=== PATIENT | female | born 1975 | race Caucasian/White ===

== ENCOUNTER 2024-07-02 09:27 | Emergency (ER) | payer OTHER, SELFPAY ==
[2024-07-02] VITALS (7 sets, daily range): BP systolic 106–121; BP diastolic 70–85; PULSE 88–112; RESP 13–17; TEMP 36.4–36.8; O2SAT 98–100; BMI 34.9
--- NOTE | 2024-07-02 09:55 | ECG_ITS ---
Test Reason : ARRHYTHMIA Blood Pressure : / mmHG Vent. Rate : 104 BPM Atrial Rate : 104 BPM P-R Int : 146 ms QRS Dur : 076 ms QT Int : 340 ms P-R-T Axes : 048 043 032 degrees QTc Int : 447 ms Sinus tachycardia Otherwise normal ECG No previous ECGs available Referred By: Enoc Harris Electronically Signed By:Neftali Vuong
--- NOTE | 2024-07-02 09:55 | ED.ARRPALP ---
HPI - Arrhythmia/Palpitations General Chief Complaint: Arrhythmia/Palpitations Stated Complaint: palpitations/svt/adenosine 6mg given Time Seen by Provider: 07/02/24 09:39 Source: patient Mode of arrival: EMS Limitations: no limitations History of Present Illness HPI narrative: This is a 49 years old female presented to the emergency department via ambulance complaining of palpitation she was found to be in SVT by the EMS she was given a 6 mg of adenosine with methodist of the sinus rhythm. Patient had a similar episode about 4 years ago. MD complaint: rapid heart beat and heart racing Onset (ago): hour(s) (2) Time: 09:56 Duration: now resolved Severity: severe Context: occurred during rest Arrhythmia history: SVT Associated symptoms: denies other symptoms Related Data Previous Rx's ?Medication ?Instructions ?Recorded metoprolol succinate 25 mg 25 mg PO DAILY #30 tabs 07/02/24 tablet,extended release 24 hr (Toprol XL) Allergies Allergy/AdvReac Type Severity Reaction Status Date / Time No Known Allergies Allergy Verified 07/02/24 09:53 Review of Systems Constitutional: Constitutional: Reports no additional constitutional complaints ENT: Reports system reviewed and no additional complaints, except as documented Musculoskeletal: Musculoskeletal: Reports no additional musculoskeletal complaints [facility] Past Medical History Attestation statement: The following information was validated with the patient. [facility] Narrative: An episode of SVT 4 years ago Social History Social History Smoked in Last 30 Days: No Use of substances other than those prescribed or required for medical reasons: No Advance Directives: No Advance Directives Information Provided: Yes Physical Exam Vital Signs: Vital Signs: Last Vital Signs Temp 98.2 F 07/02/24 12:41 Pulse 88 07/02/24 12:41 Resp 17 07/02/24 12:41 BP 121/85 07/02/24 12:41 Pulse Ox 98 07/02/24 12:41 O2 Del Method Room Air 07/02/24 12:41 BMI result Body Mass Index 34.9 She looks well she is not toxic-appearing Const: General: cooperative, comfortable and no acute distress Orientation/consciousness: patient oriented x3 HEENT: Head: Yes normal to inspection Face and sinus: Yes normal facial exam Mouth: Normal oral and palatal mucosa present Throat: Yes posterior oropharynx normal Neck: Neck: Yes normal visual inspection Chest: Chest palpation & inspection: normal inspection of the chest Resp: Effort & Inspection: normal respiratory effort Auscultation: clear to auscultation bilaterally Cardio: Jugular venous distension: no JVD Rate: regular rate Rhythm: regular rhythm GI: Inspection: Yes normal to inspection Palpation (GI): Soft to palpation Percussion: Yes normal to percussion : General: Yes no CVA tenderness Back/Spine/Pelvis: Back: no CVA tenderness Skin: General skin exam: no rashes or lesions noted and elasticity normal Neuro: General: patient oriented x3 Cranial nerves: Yes CN's II-XII intact bilaterally Course Reevaluation(s) Reevaluation #1: Prehospital rythm strip Reevaluation #2: At this time the patient is completely asymptomatic she has no chest pain no shortness of breath, troponin and was noted by me, I reviewed the pre-hospital EKG the electrocardiogram and the troponin with the perpetual inventory clerk on duty Dr. Vuong, troponin leak is likely due to the SVT, okay to discharge home on beta allison. The patient is very comfortable with this, she was given the number of the cardiology for follow-up Time: 13:26 Medications Administered Discontinued Medications Generic Name Dose Route Start Last Admin Trade Name Freq PRN Reason Stop Dose Admin Metoprolol Succinate 25 mg 07/02/24 09:54 07/02/24 10:21 Metoprolol Succinate Er 25 Mg Tab.Er.24h PO 07/02/24 09:55 25 mg ONCE ONE Administration Protocol Medical Decision Making Medical Decision Making [facility] Narrative: Patient presented to the emergency room department after an episode of SVT in sinus rhythm we will do EKG labs Differential Diagnosis Differential Diagnoses: The differential diagnosis associated with the presentation includes SVT /AFib Admission/Observation Consideration of admission/observation: Escalation of care including admission/observation considered Consult Healthcare Provider Management of the patient was discussed with: Manager Retail Sales Dr Vuong perpetual inventory clerk Lab Data [facility] Lab Attestation statement: I reviewed the patient's lab results. 07/02/24 10:13 07/02/24 10:13 Labs: Lab Results 07/02/24 07/02/24 Range/Units 10:13 12:36 WBC 13.9 H (4.8-10.8) X10*3/uL RBC 4.41 (4.20-5.50) X10*6/uL Hgb 14.7 (12.0-16.0) g/dl Hct 41.5 (37.0-47.0) % MCV 94.1 (80.0-98.0) fL MCH 33.3 H (27.0-33.0) pg MCHC 35.4 H (31.0-35.0) g/dl RDW 11.6 (11.0-16.0) % Plt Count 235 (160-400) X10*3/uL MPV 10.2 (9.4-12.3) fL Immature Gran % (Auto) 0.4 (0.0-0.4) % Neut % (Auto) 83.5 H (45-73) % Lymph % (Auto) 10.3 L (20-40) % Drew % (Auto) 4.9 (2-11) % Eos % (Auto) 0.6 (0-4) % Baso % (Auto) 0.3 (0-2) % Lymph # (Auto) 1.4 (1.2-4.9) X10*3/uL Drew # (Auto) 0.7 (0.1-1.2) X10*3/uL Eos # (Auto) 0.1 (0.0-0.4) X10*3/uL Baso # (Auto) 0.0 (0.0-0.2) X10*3/uL Abs Immat Gran (auto) 0.05 H (0.00-0.03) X10*3/uL Absolute Neuts (auto) 11.6 H (2.0-8.3) x10*3/uL Absolute Nucleated RBC 0.000 (0.0-0.012) X10*3/uL Nucleated RBC % (auto) 0.0 (0.0-0.2) /100WBC Sodium 142 (135-145) mmol/L Potassium 3.4 (3.3-5.1) mmol/L Chloride 110 H (96-108) mmol/L Carbon Dioxide 21 L (22-29) mmol/L Anion Gap 14 (12-20) BUN 9 (9-16) mg/dL Creatinine 0.74 (0.5-1.4) mg/dL Estim Creat Clear Calc 94.9 Estimated GFR > 60 Random Glucose 65 (60-115) mg/dL Calcium 8.7 (8.4-10.2) mg/dL Total Bilirubin 0.6 (0.0-1.0) mg/dL AST 19 (5-31) U/L ALT 13 (0-31) U/L Alkaline Phosphatase 76 (39-117) U/L Troponin I High Sens 44.1 H 117.6 H* D (<3.5-17.0) ng/L Total Protein 7.3 (6.5-8.0) g/dL Albumin 4.3 (3.5-5.0) g/dL Independent Interpretation I performed an independent interpretation of an: EKG Interpretation: EKG reviewed interpreted by me now in a normal sinus rhythm rate [address]-T changes Independent Historian Clinical information obtained from an independent historian. History obtained from or confirmed by: EMS Prescription Management I considered prescription management with: Other (B allison) Critical Care Time Critical Care Time Critical Care Time: Yes Total Critical Care Time: 60 Attestation: SVT speaking to EMS ,reviewing prehospital tracing taking care of the pt Discharge Plan Discharge Clinical Impression: SVT (supraventricular tachycardia) Patient Disposition: Still a Patient Instructions: Supraventricular Tachycardia (ED) Additional Instructions: Follow-up with perpetual inventory clerk return to emergency room if you are worse, we sent a prescription for you for Toprol XL (beta allison) Prescriptions: New metoprolol succinate [Toprol XL] 25 mg tablet extended release 24 hr 25 mg PO DAILY Qty: 30 0RF Referrals: Neftali Vuong MD [Physician] - 3 days Print Language: Hong Konger
[2024-07-02] MEDS: Metoprolol Succinate ER 25 MG TAB.ER.24H PO (10:21)
[2024-07-02 10:23] LABS: MANUAL DIFF FLAG NO
[2024-07-02 10:32] LABS: Basophils Percent Auto 0.3 % (0-2); Eosinophils Absolute Auto 0.1 X10*3/uL (0.0-0.4); Eosinophils Percent Auto 0.6 % (0-4); Hematocrit 41.5 % (37.0-47.0); Hemoglobin 14.7 g/dl (12.0-16.0); Imm Gran Abs Auto 0.05 X10*3/uL (0.00-0.03); Imm Gran Pct Auto 0.4 % (0.0-0.4); Lymphocytes Absolute Auto 1.4 X10*3/uL (1.2-4.9); Lymphocytes Percent Auto 10.3 % (20-40); Mean Corpuscular HGB Conc 35.4 g/dl (31.0-35.0); Mean Corpuscular Hemoglobin 33.3 pg (27.0-33.0); Mean Corpuscular Volume 94.1 fL (80.0-98.0); Mean Platelet Volume 10.2 fL (9.4-12.3); Monocytes Absolute Auto 0.7 X10*3/uL (0.1-1.2); Monocytes Percent Auto 4.9 % (2-11); Neutrophils Absolute Auto 11.6 x10*3/uL (2.0-8.3); Neutrophils Percent Auto 83.5 % (45-73); Platelet Count 235 X10*3/uL (160-400); Red Blood Count 4.41 X10*6/uL (4.20-5.50); Red Cell Distribution Width 11.6 % (11.0-16.0); White Blood Count 13.9 X10*3/uL (4.8-10.8)
[2024-07-02 10:45] LABS: Alanine Aminotransferase 13 U/L (0-31); Albumin Level 4.3 g/dL (3.5-5.0); Alkaline Phosphatase 76 U/L (39-117); Anion Gap 14 (12-20); Aspartate Amino Transferase 19 U/L (5-31); Bilirubin Total 0.6 mg/dL (0.0-1.0); Blood Urea Nitrogen 9 mg/dL (9-16); Calcium 8.7 mg/dL (8.4-10.2); Carbon Dioxide 21 mmol/L (22-29); Chloride 110 mmol/L (96-108); Creatinine Clr Calc Pharmacy 94.9; Estimated Glomerular Filt Rate > 60; Glucose Random 65 mg/dL (60-115); Potassium 3.4 mmol/L (3.3-5.1); Sodium 142 mmol/L (135-145); Total Protein 7.3 g/dL (6.5-8.0)
[2024-07-02 10:49] LABS: Troponin-I High Sensitivity 44.1 ng/L (<3.5-17.0)
[2024-07-02 13:12] LABS: Troponin-I High Sensitivity 117.6 ng/L (<3.5-17.0)
== END 2024-07-02 13:33 | disposition still patient (30) ==
PROVIDERS: Emergency Provider Emergency Medicine
DX: I47.10 Supraventricular tachycardia, unspecified (principal); I49.9 Cardiac arrhythmia, unspecified; R00.2 Palpitations
CPT/HCPCS: 36415; 80053; 84484; 85025; 93005; 99283; 99285

== ENCOUNTER → 2024-07-02 09:55 | Outpatient (BNV) | payer OTHER, SELFPAY | PROVIDERS: Emergency Provider Emergency Medicine; Visit Provider Internal Medicine Cardiovascular Disease | DX: R00.0 Tachycardia, unspecified (principal) | CPT/HCPCS: 93010 ==

== ENCOUNTER 2025-02-12 10:09 | Outpatient (AMB) | payer OTHER, SELFPAY ==
--- NOTE | 2025-02-12 10:44 | A.OFFVIS_ITS ---
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 In June 2024 while at work she developed anxiety and palpitations. She said she eventually called EMS who found her to be in supraventricular tachycardia and gave her adenosine. She apparently reverted to sinus rhythm after that. There is a rhythm strip scanned in the ER physician's note showing supraventricular tachycardia. She is saying that 3 years ago she had a similar episode where she became very pale suddenly but this episode was self-limiting. She has not had any further episodes. Denying any chest discomfort shortness of breath in her day-to-day life. She was advised to take metoprolol but she has not been using that and is currently on [employer] appetite for weight loss. Drinks 1 large cup of coffee. Does not drink any soda or stimulants. Social drinker. No drug abuse. 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 [facility] Social History (Updated 02/12/25 @ 10:47 by Marj Hu, [facility]) Alcohol intake: current Alcohol intake frequency: holidays/special occasions only Patient Tobacco Use Status: Never used Tobacco Review of Systems Const Denies chills, Denies fatigue, Denies fever(s), Denies frequent falls, Denies weakness, Denies weight gain and Denies weight loss ENT Denies dizziness Card Denies chest pain, Denies leg edema, Denies lightheadedness, Denies palpitations, Denies dyspnea, Denies dyspnea on exertion and Denies orthopnea Resp Denies cough, Denies dyspnea and Denies dyspnea on exertion GI Denies bloating and Denies change in bowel habits Musc Denies muscle weakness, Denies numbness and Denies tingling Neuro Denies dizziness, Denies frequent falls, Denies numbness, Denies tingling and Denies weakness Endo Denies fatigue and Denies palpitations Physical Exam Vital Signs: Last Vital Signs Pulse 82 02/12/25 10:45 BP 130/82 02/12/25 10:45 BMI result Body Mass Index 31.3 GENERAL APPEARANCE: in no acute distress, pleasant. NECK: no carotid bruit, no jugular venous distention. SKIN: no suspicious lesions, warm and dry. HEART: no murmurs, regular rate and rhythm. LUNGS: clear to auscultation bilaterally. ABDOMEN: soft, nontender. EXTREMITIES: no edema. PERIPHERAL PULSES: equal. NEUROLOGIC: No gross deficits, AAO X 3 Office Procedures EKG Details: Sinus rhythm 82 beats per minute, normal axis, normal ECG, QTC 432 milliseconds. [id number], Complete Assessment & Plan Assessment & Plan (1) SVT (supraventricular tachycardia): Code(s): I47.10 - Supraventricular tachycardia, unspecified Category: Medical Plan Pleasant 50 year female who is here for management as permanent atrial tachycardia. It appears she had 2 episodes in the past. Last episode was in June 2024. Since then she has not had any further episodes. She was advised to take metoprolol by the emergency department but she has not been taking that. She is currently taking turns appetite or weight loss. Not workup in the past was normal. We will check echocardiogram to rule out any structural heart issues. In general with SVT we do not find any structural heart issues. She had mild troponin elevation with SVT which was a type 2 event. She does not have any symptoms to suggest underlying coronary disease at this point. We discussed about her management including medications versus ablation. She is currently not taking any medications and does not wish to start anything currently 2. I think that is reasonable and we can monitor her closely. If she had recurrent episodes of SVT then we can refer her to electrophysiology for ablation. I have taught her about vagal maneuvers to try in case she had an episode and maybe she can afford it with these maneuvers and avoid an ER visit. Thank you for allowing me to participate in the care of your patient. Please feel free to contact me if you have any questions. Orders: Orders CA echo transthoracic complete Today I47.10 - Supraventricular tachycardia, unspecified Coding Level of Care Code New Pt Level 4 (12378) Complex EM visit Add On G2211 Diagnoses SVT (supraventricular tachycardia) I47.10 CPT Codes EKG - CPT: 96139-[id number], Complete ([id number])
[2025-02-12 10:45] VITALS: BP 130/82; PULSE 82; BMI 31.3
--- OUTSIDE RECORDS SUMMARY | 2025-02-12 11:42 | XMS_ITS | Clinical Summary ---
Author Organization [facility] [address] [place] [address] [place] [phone] Phone Care Team Providers Care Youth Officer Name Role Phone Ce Morgan MD Primary Care Provider [phone] Allergies No known active allergies Medications levonorgestreL (MIRENA) 21 mcg/24hr (up to 8 yrs) 52 mg IUD 1 Device (1 each total) by intrauterine route. 8 Active buPROPion XL (WELLBUTRIN XL) 300 mg 24 hr tablet Take 1 tablet (300 mg total) by mouth 1 (one) time each day in the morning. 90 tablet 1 5 Active polyethylene glycol (Golytely) 236-22.74-6.74 -5.86 gram solution Take 4L by mouth once for one dose. May substitue any PEG. Starting at 6PM the night before your procedure drink 1 8oz glasses at your own pace until you complete half of the gallon. Finish 2nd half of the gallon 5 hours before your procedure. 4000 mL 5 Active bisacodyL (DULCOLAX) 5 mg EC tablet Take 2 tablets by mouth right before beginning bowel prep. See instructions provided by the office 2 tablet 5 Active Active Problems Problem Noted Date Diagnosed Date Asthma 06/28/2024 Abnormal mammogram of left breast 05/11/2021 Overview (06/28/2024): February 2021 - called multiple times, patient declining further imaging due to lack of insurance TMJ syndrome 06/18/2020 Seasonal allergies 05/01/2020 Obesity (BMI 30.0-34.9) 05/22/2018 Major depression 01/08/2013 Immunizations Name Administration Dates Next Due Influenza Quadravalent, MDCK , 0.5ml, preservative free (Flucelvax) 6mo and older 06/18/2020 Influenza trivalent, 0.5mL, preservative free (Fluarix; FluLaval; Fluzone) ages 6mo and older (Afluria) 3 years and older 05/12/2018,06/06/2015,05/02/2013,07/27 Pfizer SARS-CoV-2 COVID-19, mRNA, LNP-S, preservative free 08/19/2021 Pneumococcal polysaccharide 23 valent (Pneumovax 23) 2yo and older 06/28/2018 Tdap Tetanus diptheria acell ular pertussis (Boostrix; Adacel) 7yo and older 12/22/2016 Surgical History Surgery Date Site/Laterality Comments ANKLE SURGERY PROCEDURE: HISTORICAL ANKLE SURGERY; COMMENT: at 13 years old OTHER SURGICAL HISTORY 05/2018 PROCEDURE: MAMMOGRAM Medical History Medical History Date Comments Hepatitis DX:Hepatitis; CO MMENT: pt states she had jaundice while using IUD. Testing now negative Long-term current use of met hadone for opiate dependence ([facility] V24, [facility] V28) DX:Long-term current use of methadone for opiate dependence ([facility]); COMMENT: Clinic in [place]- 4mg Abnormal Pap smear of cervix DX: Abnormal Pap smear of cervix Major depression 01/08/2013 DX:Major depres kwesi Asthma DX:Asthma Family History Medical History Relation Name Comments CABG Father depression, alc ohol abuse, lungs collapse multiple times Obesity Maternal Grandfather Depression Mother alcohol abuse; patient reports mother did NOT have ovarian cander on 02/13/23 Leukemia Paternal Grandfather Coronary artery disease Paternal Grandmother angina Relation Name Status Comments Father Alive Maternal Grandfather Maternal Grandmother Alive Mother Alive Paternal Grandfather Paternal Grandmother Sister x 1 Alive Social History Tobacco Use Types Packs/Day Years Used Date Smoking Tobacco: Former Cigarettes Smokeless Tobacco: Never Tobacco Cessation:Counseling Given: Not Answered Alcohol Use Standard Drinks/Week Comments Yes 0 (1 standard drink = 0.6 oz pur e alcohol) 3-5 drinks on Fri or Sat Comments Unknown Sex and Gender Information Value Date Recorded Sex Assigned at Not on file Legal Sex Female 12:23 PM EST Gender Identity Not on file Sexual Orientation Not on file Obstetrics History Last Filed Vital Signs Vital Sign Reading Time Taken Comments Blood Pressure 125/79 10/22/2024 3:58 PM EST Pulse 92 10/22/2024 3:58 PM EST Temperature 36.6 C (97.9 F) 10/22/2024 3:58 PM EST Respiratory Rate 14 10/22/2024 3:58 PM EST Oxygen Saturation - - Inhaled Oxygen Concentration - - Weight 82.1 kg (180 lb 14.4 oz) 10/22/2024 3:58 PM EST Height 157.5 cm (5' 2 ) 10/22/2024 3:58 PM EST Body Mass Index 33.09 10/22/2024 3:58 PM EST Plan of Treatment Upcoming Encounters Date Type Department Care Team (Late st Contact Info) Description 02/25/2025 4:30 PM EDT Office Visit Adult Medicine [address] [phone] Ce Morgan MD [address] [place] [id number] Health Maintenance Due Date Last Done Comments Hepatitis B Vaccines (1 of 3 - 19+ 3-dose series) 01/03/1995 Pneumococcal Vaccine: Pediatrics (0 to 5 Years) and At-Risk Patients (6 to 64 Years) (2 of 2 - PCV) 06/28/2019 06/28/2018 Colorectal Cancer Screening: Colonoscopy 07/19/2022 HIV Screening 07/19/2022 Hepatitis C Screening 07/19/2022 Social Influencers of Health Screening 07/19/2022 Breast Cancer Screening 03/05/2023 03/05/20 21, 06/07/2018, 12/05/2017, Additional history exists Cholesterol Screening (Lipid Panel) 06/18/2025 06/18/2020 Depression Screening 10/23/2025 10/23/2024 DTaP,Tdap,and Td Vaccines (2 - Td or Tdap) 12/22/2026 12/22/2016 Cervical Cancer Screening: HPV 12/03/2027 12/02/2022 Influenza Vaccine Discontinued 06/18/2020, , 06/06/2015, Additional history exists COVID-19 Vaccine Discontinued 08/19/2021, 04/2021, 10/05/2020 HIB Vaccines Aged Out No longer eligi ble based on patient's age to complete this topic HPV Vaccines Aged Out No longer eligi ble based on patient's age to complete this topic Hepatitis A Vaccines Aged Out No long er eligible based on patient's age to complete this topic IPV Vaccines Aged Out No longer eligi ble based on patient's age to complete this topic MMR Vaccines Aged Out No longer eligi ble based on patient's age to complete this topic Meningococcal ACWY Vaccine Aged Out N o longer eligible based on patient's age to complete this topic Meningococcal B Vaccine Aged Out No l onger eligible based on patient's age to complete this topic RSV Immunization Patients Under 20 months Aged Out No longer eligible based on patient's age to complete this topic Varicella Vaccines Aged Out No longer eligible based on patient's age to complete this topic Procedures Procedure Name Priority Date/Time Associated Diagnosis Comments SCREENING MAMMOGRAPHY BI 2-VIEW BREAST INC CAD Routine 03/05/2021 4:18 PM EDT Encounter for screening mammogram for malignant neoplasm of breast from Last 3 Months or Most Recently Relevant to Health Maintenance Results * SCREENING MAMMOGRAPHY BI 2-VIEW BREAST INC CAD (03/05/2021 4:18 PM EDT) Anatomical Region Laterality Modality Radiographic Sho ging 06/18/2020 8:48 AM EDT Narrative 07/06/2021 3:44 PM EST This is a summary report. The complete report is available in the patient's medical record. If you cannot access the medical record, please contact the sending organization for a detailed fax or copy. Addendum: The patient canceled her scheduled ultrasound appointment and never called back to reschedule it. Department letter was sent to the patient by standard post as well as by certified mail. Full field digital screening 3D and 2D mammography, reviewed with CAD and compared to previous mammograms of 10/01/2016 and 11/20/2017. The breasts are composed of fatty and fibroglandular tissue. No architectural distortion or suspicious calcifications are identified. There is a focal asymmetry in the upper outer left breast. IMPRESSION: : Focal asymmetry upper outer left breast. Ultrasound evaluation of this region suggested. The patient be contacted by the radiology department to arrange for the additional imaging. BIRADS 0-incomplete: Additional imaging evaluation needed 5 year breast cancer risk assessment 1.1 % Lifetime breast cancer risk assessment 13.0 % Breast cancer risk category Low (<15%) Procedure Note Quyen Ugrate MD - 09/25/2023 This is a summary report. The complete report is available in thepatient's medical record. If you cannot access the medical record, pleasecontact the sending organization for a detailed fax or copy. Addendum: The patient canceled her scheduled ultrasound appointment andnever called back to reschedule it. Department letter was sent to the patient by standard postas well as by certified mail. Full field digital screening 3D and 2D mammography, reviewed with CAD andcompared to previous mammograms of 10/01/2016 and 11/20/2017. The breastsare composed of fatty and fibroglandular tissue. No architecturaldistortion or suspicious calcifications are identified. There is a focal asymmetry in the upper outer left breast. IMPRESSION: : Focal asymmetry upper outer left breast. Ultrasound evaluation of thisregion suggested. The patient be contacted by the radiology department toarrange for the additional imaging. BIRADS 0-incomplete: Additional imaging evaluation needed 5 year breast cancer risk assessment 1.1 % Lifetime breast cancer risk assessment 13.0 % Breast cancer risk category Low (<15%) Marsha WHELAN IMG XR PROCEDURES Edited Resu lt - Final from Last 3 Months or Most Recently Relevant to Health Maintenance Insurance * Guarantor: Larry Dallas Account Type Relation to Patient Date of Phone Billing Address Personal/Family Self 1975 [phone] (Work) [address] [place] [address] [facility] [employer] Care Teams Youth Officer Relationship Specialty Start Date End Date Ce Morgan MD [address] [place] [id number] PCP - General Internal Medicine 10/21/24
== END 2025-02-12 11:10 | disposition home or self-care (01) ==
LOC: HO.HCS 10:10
PROVIDERS: PCP Physician Assistant; Visit Provider Internal Medicine Cardiovascular Disease
DX: I47.10 Supraventricular tachycardia, unspecified (principal)
CPT/HCPCS: 93010; 99204

== ENCOUNTER → 2025-02-12 10:09 | Outpatient (BNVA) | payer OTHER, SELFPAY | PROVIDERS: PCP Physician Assistant; Visit Provider Internal Medicine Cardiovascular Disease | DX: I48.21 Permanent atrial fibrillation (principal); I47.10 Supraventricular tachycardia, unspecified | CPT/HCPCS: 93005 ==

== ENCOUNTER 2025-07-07 12:13 | Emergency (ER) | payer OTHER, SELFPAY ==
--- NOTE | ~2025-07-07 | CT_ITS ---
EXAM: CT HEAD WITHOUT CONTRAST CT CERVICAL SPINE INDICATION: syncope/hit head TECHNIQUE: A noncontrast CT scan was performed from the skull base to the vertex. A noncontrast CT scan of the cervical spine was performed from the base of the skull through T1 at 2.5 mm and 0.625 mm collimation. Coronal and sagittal reformats were obtained at the acquisition workstation. This CT examination was performed using dose optimization techniques as appropriate, variously including the following: * Automated exposure control * Adjustment of mA and/or kV according to patient size (this includes techniques or standardized protocols for targeted exams where dose is matched to indication/reason for exam; i.e. extremities or head) * Use of iterative reconstruction technique Dose length product is 929 mGy-cm. COMPARISON: None FINDINGS: There is no evidence of acute intracranial hemorrhage or edematous large vessel territorial infarction. No abnormal mass effect or midline shift is seen. Sanchez to white matter differentiation is well preserved. No abnormal extra-axial fluid collections are identified. The ventricles are normal in size. No abnormal attenuation in the brain parenchyma. No acute calvarial fracture.. Paranasal sinuses and mastoid air cells are well-aerated. Cervical Spine: There is anatomic alignment of the vertebral bodies and posterior elements. Straightening of the cervical curvature. The atlantoaxial and atlantooccipital articulations are maintained. Vertebral body heights are maintained No evidence of acute fracture. Mild C4-5, C5-6 disc degeneration. No prevertebral soft tissue swelling. Visualized lung apices appear unremarkable.. CT/CT head/brain wo IV con IMPRESSION: No CT evidence of acute intracranial findings.. No CT evidence of acute fracture of the cervical spine. Electronically signed by: Compa Stone MD 07/07/2025 04:09 PM [facility]
--- NOTE | ~2025-07-07 | CT_ITS ---
EXAM: CT HEAD WITHOUT CONTRAST CT CERVICAL SPINE INDICATION: syncope/hit head TECHNIQUE: A noncontrast CT scan was performed from the skull base to the vertex. A noncontrast CT scan of the cervical spine was performed from the base of the skull through T1 at 2.5 mm and 0.625 mm collimation. Coronal and sagittal reformats were obtained at the acquisition workstation. This CT examination was performed using dose optimization techniques as appropriate, variously including the following: * Automated exposure control * Adjustment of mA and/or kV according to patient size (this includes techniques or standardized protocols for targeted exams where dose is matched to indication/reason for exam; i.e. extremities or head) * Use of iterative reconstruction technique Dose length product is 929 mGy-cm. COMPARISON: None FINDINGS: There is no evidence of acute intracranial hemorrhage or edematous large vessel territorial infarction. No abnormal mass effect or midline shift is seen. Sanchez to white matter differentiation is well preserved. No abnormal extra-axial fluid collections are identified. The ventricles are normal in size. No abnormal attenuation in the brain parenchyma. No acute calvarial fracture.. Paranasal sinuses and mastoid air cells are well-aerated. Cervical Spine: There is anatomic alignment of the vertebral bodies and posterior elements. Straightening of the cervical curvature. The atlantoaxial and atlantooccipital articulations are maintained. Vertebral body heights are maintained No evidence of acute fracture. Mild C4-5, C5-6 disc degeneration. No prevertebral soft tissue swelling. Visualized lung apices appear unremarkable.. CT/CT cervical spine wo IV con IMPRESSION: No CT evidence of acute intracranial findings.. No CT evidence of acute fracture of the cervical spine. Electronically signed by: Compa Stone MD 07/07/2025 04:09 PM [facility]
--- NOTE | ~2025-07-07 | XR_ITS ---
EXAMINATION: XR SHOULDER, LEFT CLINICAL INFORMATION: shoulder pain COMPARISON: None available. TECHNIQUE: AP external rotation, Grashey, scapular Y, and axillary views of the left shoulder. FINDINGS: A.C. and glenohumeral joints are intact. Minimal degenerative changes are evident in the A.C. and glenohumeral joints. No fracture is identified. XR/XR shoulder LT min 2V IMPRESSION: Minimal degenerative changes are evident in the A.C. and glenohumeral joints. Electronically signed by: Yair Dorsey MD 07/07/2025 03:10 PM EST
[2025-07-07 12:56] VITALS: BP 146/91; PULSE 88; RESP 16; TEMP 36.5; O2SAT 100; BMI 27.7
--- NOTE | 2025-07-07 12:58 | ECG_ITS ---
Test Reason : LT SHLDR PAIN Blood Pressure : */* mmHG Vent. Rate : 77 BPM Atrial Rate : 77 BPM P-R Int : 134 ms QRS Dur : 84 ms QT Int : 388 ms P-R-T Axes : 25 36 28 degrees QTcB Int : 439 ms Normal sinus rhythm Normal ECG When compared with ECG of 02-Jul-2024 10:01, No significant change was found Referred By: Joel Knox Electronically Signed By: GISEL ACOSTA
--- NOTE | 2025-07-07 13:02 | ED_ITS ---
HPI - General Adult General Chief complaint: Fall Stated complaint: Injury Time Seen by Provider: 07/07/25 14:43 Source: patient Mode of arrival: ambulatory Limitations: no limitations History of Present Illness ED Provider: Kaylee Vernon PA-C HPI narrative: Patient is a 50 year old assigned female at with no reported medical history presenting to the emergency department today with left shoulder pain and syncope. Patient states that she was in a very hot shower when she stepped out, moved her left arm up, and had a sharp pain from her left shoulder that caused her to get lightheaded and pass out. Patient states that she hit her head but denies any loss of consciousness. Patient denies any other complaints at this time. Related Data Home Medications ?Medication ?Instructions ?Recorded ?Confirmed tirzepatide (weight loss) 2.5 2.5 mg subcut QWEEK 01/2002/12/25 mg/0.5 mL subcutaneous pen injector (Zepbound) Previous Rx's ?Medication ?Instructions ?Recorded cyclobenzaprine 5 mg tablet 5 mg PO TID PRN shoulder p ain 7 07/07/25 days #21 tabs Allergies Allergy/AdvReac Type Severity Reaction Status Date / Time No Known Allergies Allergy Verified 07/07/25 12:57 Review of Systems 2 Constitutional: Constitutional: Reports as per HPI Eyes: Eyes: Reports as per HPI ENT: Reports as per HPI Cardiovascular: Cardiovascular: Reports as per HPI Respiratory: Respiratory: Reports as per HPI Gastrointestinal: Gastrointestinal: Reports as per HPI Genitourinary: Genitourinary: Reports as per HPI Musculoskeletal: Musculoskeletal: Reports as per HPI Integumentary/Breasts: Skin/Breast: Reports as per HPI Neurologic: Reports as per HPI Psychiatric: Psychiatric: Reports as per HPI Endocrine: Endocrine: Reports as per HPI Hematologic/Lymphatic: Hematologic/Lymphatic: Reports as per HPI Allergic/Immunologic: Allergic/Immunologic: Reports as per HPI PMF Past Medical History Attestation statement: The following information was validated with the patient. Source: old records reviewed and nursing notes reviewed Social History Social History Alcohol intake: current Alcohol intake frequency: 0-2 drinks per day Alcohol type: wine Patient Tobacco Use Status: Never used Tobacco Smoked in Last 30 Days: No Use of substances other than those prescribed or required for medical reasons: Yes Substance Use Type: Marijuana Substance Use Frequency: Daily Advance Directives: No Advance Directives Information Provided: No Patient : No Physical Exam ED Vital Signs: Vital Signs - 24 hr 07/07/25 12:56 07/07/25 15:11 07/07/25 16:11 Temperature 97.7 F Pulse Rate 88 70 71 Respiratory Rate 16 18 16 Blood Pressure 146/91 H 146/82 H 144/76 H Pulse Oximetry 100 100 100 Oxygen Delivery Method Room Air Room Air Room Air 07/07/25 16:23 Temperature 0 F L Pulse Rate 71 Respiratory Rate 16 Blood Pressure 144/76 H Pulse Oximetry 100 Oxygen Delivery Method Room Air BMI result Body Mass Index 27.7 Const General: cooperative, no acute distress, alert and awake Nutritional Appearance: well nourished Orientation/consciousness: patient oriented x3 HENMT Head: Yes normal to inspection and Yes atraumatic Ears: hearing grossly normal bilaterally and external ears normal General nose exam: Normal external nose present, no nasal discharge noted and no epistaxis Face and sinus: Yes normal facial exam, No abrasion and No laceration Mouth: Normal oral and palatal mucosa present, no drooling and no muffled voice Eyes General: appearance normal, both eyes and all related structures Periorbital: periorbital findings normal Eyelids: Yes eyelids normal Conjunctivae: conjunctivae normal Pupils: Equal, round and reactive pupils present EOM: EOMs intact bilaterally Neck Neck: Yes normal visual inspection and Yes full ROM Resp Effort & Inspection: normal respiratory effort and able to speak in complete sentences Neuro General: patient oriented x3, moves all extremities and CN's II-XI intact bilaterally Cranial nerves: Yes Equal, round and reactive pupils present Cognition (Neuro): normal cognition Extrem Other: pain with left shoulder ROM - consistent with rotator cuff injury General: Yes normal to inspection and Yes capillary refill normal Psych Appearance: grossly normal Mental Status: mental status grossly normal Affect: normal affect Attitude: cooperative Thought process: Normal thought process present Thought content: Normal thought content present Insight: Good insight present (Psych) Course Course Course Narrative: RME: 50-year-old female history of SVT presents to ED for left arm pain since yesterday with syncopal episode and cold sweat. Patient came to the ED to be evaluated. Patient states that she syncopized hit her head on a dresser. Patient to be evaluated. Labs EKG ordered Medical Decision Making Medical Decision Making [facility] Narrative: Patient is a 50 year old assigned female at with no reported medical history presenting to the emergency department today with left shoulder pain and syncope. Patient's physical exam was as noted in the physical exam portion of this note and consistent with a left rotator cuff injury. Patient's blood work was unremarkable. Patient's EKG was unremarkable. Patient's left shoulder x-ray, head CT, and cervical spine CT showed no acute process. Patient's clinical presentation is most consistent with a left rotator cuff injury and vasovagal syncope. I explained my physical exam findings as well as all test results to the patient. I answered all questions asked by the patient. I stressed the importance of the patient taking her medication as directed (either prescribed or as the over the counter packaging recommends). I stressed the importance of the patient following up with her primary care provider and the orthopedic team. I stressed the importance of the patient returning to the emergency department immediately if her symptoms were to worsen or if she were to develop any dizziness, shortness of breath, difficulty breathing, chest pain, blurry vision, loss of vision, nausea, vomiting, abdominal pain, fever, chills, back pain, or any other complaints. Patient verbalized agreement and understanding with this treatment plan and discharge. Differential Diagnosis Differential Diagnoses: The differential diagnosis associated with the presentation includes Left shoulder pain Left rotator cuff injury Vasovagal syncope Admission/Observation Consideration of admission/observation: Escalation of care including admission/observation considered Patient would have been admitted to the hospital had her work up had any findings where hospital admission was appropriate and her clinical presentation warranted hospital admission. Lab Data [facility] Lab Attestation statement: I reviewed the patient's lab results. My interpretation of these results are in the MDM Rationale portion of this note. 07/07/25 13:42 07/07/25 13:42 Labs: Lab Results 07/07/25 Range/Units 13:42 WBC 8.2 (4.8-10.8) X10*3/uL RBC 4.08 L (4.20-5.50) X10*6/uL Hgb 14.0 (12.0-16.0) g/dl Hct 39.6 (37.0-47.0) % MCV 97.1 (80.0-98.0) fL MCH 34.3 H (27.0-33.0) pg MCHC 35.4 H (31.0-35.0) g/dl RDW 11.9 (11.0-16.0) % Plt Count 216 (160-400) X10*3/uL MPV 11.2 (9.4-12.3) fL Immature Gran % (Auto) 0.2 (0.0-0.4) % Neut % (Auto) 66.7 (45-73) % Lymph % (Auto) 25.8 (20-40) % Appling % (Auto) 5.5 (2-11) % Eos % (Auto) 1.1 (0-4) % Baso % (Auto) 0.7 (0-2) % Lymph # (Auto) 2.1 (1.2-4.9) X10*3/uL Appling # (Auto) 0.5 (0.1-1.2) X10*3/uL Eos # (Auto) 0.1 (0.0-0.4) X10*3/uL Baso # (Auto) 0.1 (0.0-0.2) X10*3/uL Abs Immat Gran (auto) 0.02 (0.00-0.03) X10*3/uL Absolute Neuts (auto) 5.5 (2.0-8.3) x10*3/uL Absolute Nucleated RBC 0.000 (0.0-0.012) X10*3/uL Nucleated RBC % (auto) 0.0 (0.0-0.2) /100WBC PT 11.2 (11.2-13.5) SEC INR 0.9 (0.9-1.1) APTT 21.7 L (26.7-34.1) SEC Sodium 139 (135-145) mmol/L Potassium 3.7 (3.3-5.1) mmol/L Chloride 105 (96-108) mmol/L Carbon Dioxide 26 (22-29) mmol/L Anion Gap 12 (12-20) BUN 8 L (9-16) mg/dL Creatinine 0.64 (0.5-1.4) mg/dL Estim Creat Clear Calc 96.6 Estimated GFR > 60 Random Glucose 76 (60-115) mg/dL Calcium 9.1 (8.4-10.2) mg/dL Total Bilirubin 0.5 (0.0-1.0) mg/dL AST 20 (5-31) U/L ALT 12 (0-31) U/L Alkaline Phosphatase 55 (39-117) U/L Troponin I High Sens < 2.7 D (<3.5-17.0) ng/L NT-Pro-B Natriuret Pep 96.1 (<300) pg/mL Total Protein 7.6 (6.5-8.0) g/dL Albumin 4.8 (3.5-5.0) g/dL Independent Interpretation I performed an independent interpretation of an: Plain X-Ray and CT Scan Interpretation: My interpretation is in agreement with the radiologist's impression of these imaging studies. L Reason for Exam: shoulder pain EXAMINATION: XR SHOULDER, LEFT CLINICAL INFORMATION: shoulder pain COMPARISON: None available. TECHNIQUE: AP external rotation, Grashey, scapular Y, and axillary views of the left shoulder. FINDINGS: A.C. and glenohumeral joints are intact. Minimal degenerative changes are evident in the A.C. and glenohumeral joints. No fracture is identified. XR/XR shoulder LT min 2V IMPRESSION: Minimal degenerative changes are evident in the A.C. and glenohumeral joints. Electronically signed by: Yair Dorsey MD 07/07/2025 03:10 PM [facility] Dictated By: Yair Dorsey MD Signed By: Electronically signed by Yair Dorsey MD 07/07/25 1510 Report Number: [id number]: Total DLP = 0.00 mGy-cm Reason for Exam: syncope/hit head EXAM: CT HEAD WITHOUT CONTRAST CT CERVICAL SPINE INDICATION: syncope/hit head TECHNIQUE: A noncontrast CT scan was performed from the skull base to the vertex. A noncontrast CT scan of the cervical spine was performed from the base of the skull through T1 at 2.5 mm and 0.625 mm collimation. Coronal and sagittal reformats were obtained at the acquisition workstation. This CT examination was performed using dose optimization techniques as appropriate, variously including the following: * Automated exposure control * Adjustment of mA and/or kV according to patient size (this includes techniques or standardized protocols for targeted exams where dose is matched to indication/reason for exam; i.e. extremities or head) * Use of iterative reconstruction technique Dose length product is 929 mGy-cm. COMPARISON: None FINDINGS: There is no evidence of acute intracranial hemorrhage or edematous arge vessel territorial infarction. No abnormal mass effect or midline shift is seen. Sanchez to white matter differentiation is well preserved. No abnormal extra-axial fluid collections are identified. The ventricles are normal in size. No abnormal attenuation in the brain parenchyma. No acute calvarial fracture.. Paranasal sinuses and mastoid air cells are well-aerated. Cervical Spine: There is anatomic alignment of the vertebral bodies and posterior elements. Straightening of the cervical curvature. The atlantoaxial and atlantooccipital articulations are maintained. Vertebral body heights are maintained No evidence of acute fracture. Mild C4-5, C5-6 disc degeneration. No prevertebral soft tissue swelling. Visualized lung apices appear unremarkable.. CT/CT cervical spine wo IV con IMPRESSION: No CT evidence of acute intracranial findings. No CT evidence of acute fracture of the cervical spine. Electronically signed by: Compa Stone MD 07/07/2025 04:09 PM [facility] Dictated By: Compa Stone MD Signed By: Electronically signed by Compa Stone MD 07/07/25 1609 I independently interpreted this EKG and am in agreement with the below findings: Vent. Rate: 77 BPM Atrial Rate: 77 BPM P-R Int: 134 ms QRS Dur: 84 ms QT Int: 388 ms P-R-T Axes: 25 36 28 degrees QTcB Int: 439 ms Normal sinus rhythm Normal ECG When compared with ECG of 02-Jul-2024 10:01, No significant change was found DD/ 1304 Radiology Impression Discussion of test interpretation with radiology: I have reviewed the radiologist's reading. Prescription Management I considered prescription management with: Pain Medication (patient prescribed a muscle relaxer) Discharge Plan Discharge Clinical Impression: Syncope, vasovagal Acute shoulder pain Qualifiers: Laterality: left Qualified Code(s): M25.512 - Pain in left shoulder Patient Disposition: Home, Self-Care Instructions: Rotator Cuff Injury (ED), Syncope (DC), Shoulder Pain (ED), Rotator Cuff Injury Exercises (DC) Additional Instructions: Your work up today was unremarkable for any EMERGENT process. Your examination is most consistent with a rotator cuff injury. Please follow up with the orthopedic team. IF you are prescribed home medications and/or you are taking over the counter medications at home - it is very important you continue to do so as prescribed / directed unless told otherwise. Follow up with a primary care provider. Return to the emergency department immediately if your symptoms worsen or if you develop any numbness, tingling, dizziness, shortness of breath, difficulty breathing, chest pain, blurry vision, loss of vision, nausea, vomiting, abdominal pain, fever, chills, back pain, or any other complaints. L If you do not have a primary care provider - call any of the below numbers to establish and follow up with a primary care provider. [facility] ([place]) [phone] [place] [address], [address] [facility] ([address] [place]) [phone] [place] [address], [address] [facility], [address] [facility] ([address] [place]) [phone] [place] [address], [address] [facility], [address] [facility] ([place]) [phone] [place] [address], [address] [facility], [address] [facility] [phone] [place] [address], [id number] Please see the information below about our Patient Portal. If you are not yet enrolled in the [facility] Patient Portal, you will receive an enrollment email invitation following your visit to any [facility] ED setting. You may also self-enroll in the Patient Portal by visiting our website: [email or web address] The following information is required to access the Patient Portal: - Your [facility] Medical Record Number - Your personal home email address (must match what is in your electronic medical record, Registration staff can assist with this) - Name - Date of Capabilities of the Patient Portal: - Message some providers - View upcoming appointments - Access your health summary, medical history, and visit history - View current conditions and allergies - View procedure and lab results - View your medications, including guidelines, side effects, and precautions - Complete pre-appointment questionnaires requested by your provider - Ready summary reports of your office visits and procedures To access the Patient Portal Mobile [employer], follow these directions: - Search [employer] in the Nupur Store or [employer] Store - Download the Nupur - Search for [facility] - Enter your login/password Prescriptions: New cyclobenzaprine 5 mg tablet 5 mg PO TID PRN (Reason: shoulder pain) 7 Days Qty: 21 0RF No Action Zepbound 2.5 mg/0.5 mL pen injector 2.5 mg subcut QWEEK Rx Instructions: for 4 weeks Referrals: [facility] [Provider Group] Referral Note: Call to establish and follow up with the orthopedic team for your left shoulder pain. Interventions: ED Discharge Assessment Last Done: 07/07/25 16:23 Discharge Date/Time: 07/07/25 16:24 Print Language: Namibian
[2025-07-07 13:55] LABS: MANUAL DIFF FLAG NO
[2025-07-07 13:56] LABS: Hematocrit 39.6 % (37.0-47.0); Hemoglobin 14.0 g/dl (12.0-16.0); Imm Gran Abs Auto 0.02 X10*3/uL (0.00-0.03); Imm Gran Pct Auto 0.2 % (0.0-0.4); Lymphocytes Absolute Auto 2.1 X10*3/uL (1.2-4.9); Mean Corpuscular HGB Conc 35.4 g/dl (31.0-35.0); Mean Corpuscular Hemoglobin 34.3 pg (27.0-33.0); Mean Corpuscular Volume 97.1 fL (80.0-98.0); NRBC Abs Auto 0.000 X10*3/uL (0.0-0.012); NRBC Pct Auto 0.0 /100WBC (0.0-0.2); Platelet Count 216 X10*3/uL (160-400); Red Blood Count 4.08 X10*6/uL (4.20-5.50); White Blood Count 8.2 X10*3/uL (4.8-10.8)
[2025-07-07 14:15] LABS: INTERNATIONAL NORM RATIO 0.9 (0.9-1.1); Prothrombin Time 11.2 SEC (11.2-13.5)
[2025-07-07 14:20] LABS: Alanine Aminotransferase 12 U/L (0-31); Albumin Level 4.8 g/dL (3.5-5.0); Alkaline Phosphatase 55 U/L (39-117); Anion Gap 12 (12-20); Aspartate Amino Transferase 20 U/L (5-31); Blood Urea Nitrogen 8 mg/dL (9-16); Calcium 9.1 mg/dL (8.4-10.2); Carbon Dioxide 26 mmol/L (22-29); Chloride 105 mmol/L (96-108); Creatinine Clr Calc Pharmacy 96.6; Estimated Glomerular Filt Rate > 60; Potassium 3.7 mmol/L (3.3-5.1); Sodium 139 mmol/L (135-145); Total Protein 7.6 g/dL (6.5-8.0)
[2025-07-07 14:21] LABS: NT Pro B Type Natriuretic Pept 96.1 pg/mL (<300); Partial Thromboplastin Time 21.7 SEC (26.7-34.1)
[2025-07-07 14:23] LABS: Troponin-I High Sensitivity < 2.7 ng/L (<3.5-17.0)
[2025-07-07 15:11] VITALS: BP 146/82; PULSE 70; RESP 18; O2SAT 100
[2025-07-07 16:11] VITALS: BP 144/76; PULSE 71; RESP 16; O2SAT 100
[2025-07-07 16:23] VITALS: BP 144/76; PULSE 71; RESP 16; TEMP -17.7; TEMP 0; O2SAT 100
== END 2025-07-07 16:24 | disposition home or self-care (01) ==
PROVIDERS: Physician Assistant; Emergency Provider Emergency Medicine
DX: R55 Syncope and collapse (principal); M25.512 Pain in left shoulder; M54.2 Cervicalgia; R51.9 Headache, unspecified; Z79.85 Long-term (current) use of injectable non-insulin antidiabetic drugs; Z79.899 Other long term (current) drug therapy
CPT/HCPCS: 36415; 70450; 72125; 73030; 80053; 83880; 84484; 85025; 85610; 85730; 93005; 99285

== ENCOUNTER → 2025-07-07 12:58 | Outpatient (BNV) | payer OTHER, SELFPAY | PROVIDERS: Emergency Provider Emergency Medicine; Visit Provider Internal Medicine | DX: M25.512 Pain in left shoulder (principal) | CPT/HCPCS: 93010 ==

== ENCOUNTER → 2025-07-07 13:30 | Outpatient (BNV) | payer OTHER, SELFPAY | PROVIDERS: Visit Provider Radiology Diagnostic Radiology | DX: R55 Syncope and collapse (principal); Z04.3 Encounter for examination and observation following other accident; M25.512 Pain in left shoulder | CPT/HCPCS: 70450; 72125; 73030 ==

== ENCOUNTER 2025-08-01 09:19 | Outpatient (AMB) | payer OTHER, SELFPAY ==
--- NOTE | 2025-08-01 09:22 | A.OFFVIS_ITS ---
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 Per ED note, on 07/07/25 the patient reported that she was taking a very hot shower, when she stepped out of the shower and lifted her left arm she had a sudden intense pain in the shoulder causing her to become light headed and pass out. Today patient reports that she did not fall on her arm. She believes she just had slept on her shoulder wrong. States having 2 episodes of intense shooting pain in her shoulder. No previous treatment. No pain at the moment. Allergies No Known Allergies Allergy (Verified 08/01/25 09:29) Medication List - Last Reconciled 08/01/25 by Anna Marie Fan PA-C bupropion HCl XL 300 mg PO QAM tirzepatide (weight loss) (Zepbound) 2.5 mg subcut QWEEK HPI Comments Details: History of Present Illness The patient is a 50-year-old female presenting with left shoulder pain. She reports two discrete instances of severe pain, which she attributes to her sleeping position with her arm under a pillow. During a recent episode, she experienced a shooting pain in the left shoulder while drying her back, which caused dizziness and resulted in her passing out and falling, though she did not land on the shoulder. The pain is described as a significant soreness that can make it difficult to perform activities like closing a car door. However, the pain is not constant and does not typically restrict her daily activities unless it is acutely flared up. She has used [id number] Motrin for these flare-ups, taking 4-5 tablets of 200 mg at a time. Social History - Habits: Reports sleeping with her arm under her pillow, which she believes exacerbates her shoulder pain. [facility] Social History (Updated 08/01/25 @ 09:30 by DEANDRA Hanna) Alcohol intake: current Alcohol intake frequency: 0-2 drinks per day Alcohol type: wine Patient Tobacco Use Status: Never used Tobacco Substance Use Type: Marijuana Current occupation: right hand dominant Review of Systems Narrative Review of Systems - Musculoskeletal: Reports intermittent, severe shoulder soreness during flare- ups, which limits her ability to move her arm. - Neurological: Reports an episode of dizziness associated with a shooting pain in her shoulder. Physical Exam Exam Exam: Physical Exam - Musculoskeletal (Shoulder): Tender to palpation over the anterior shoulder. - Active range of motion is full with forward flexion, external rotation, and internal rotation to the back, although a flare-up can limit motion past 90 degrees of abduction. - Provocative testing is positive for pain with cross-body adduction. - Rotator cuff strength is 5/5 for supraspinatus, external rotation, and subscapularis. Vital Signs: BMI result Body Mass Index 27.6 Assessment & Plan Assessment & Plan (1) Impingement of left shoulder: Code(s): M25.812 - Other specified joint disorders, left shoulder Category: Medical Plan Plan 1. Shoulder Impingement Syndrome The patient's symptoms are most consistent with shoulder impingement syndrome, with possible irritation of the biceps tendon. X-rays from July 07 show good glenohumeral joint space but a sloped acromion and sclerotic changes that support a diagnosis of impingement, with very mild, likely incidental, arthritis in the AC joint. Physical exam reveals good rotator cuff strength. The plan includes avoiding aggravating activities, using anti-inflammatories like Motrin or Aleve for flare-ups, and the option for physical therapy to improve strength and posture. A therapeutic regimen of 800 mg of Motrin three times a day for two weeks was suggested for acute flare-ups, with an offer for a prescription. A cortisone injection was discussed as a future option if symptoms become consistent, cause sleep loss, or are unbearable. The patient has elected to defer physical therapy and a cortisone injection at this time. She will follow up as needed if her symptoms worsen or if she wishes to pursue further treatment. Consent The risks, benefits, and alternatives of treatment options, including activity modification, anti-inflammatory medications, physical therapy, and cortisone injections, were discussed with the patient. The patient understood the options and verbally deferred consent for physical therapy and a cortisone injection at this time. No procedures were performed during this visit. Patient was informed and verbally consented to the use of an ambient scribe for clinic note documentation during this visit. Coding Level of Care Code New Pt Level 3 (62199) Add On Problem Visit Only Diagnoses Impingement of left shoulder M25.812
[2025-08-01 09:30] VITALS: BMI 27.6
== END 2025-08-01 09:39 | disposition home or self-care (01) ==
LOC: HO.HOS 09:19
PROVIDERS: Visit Provider Physician Assistant
DX: M25.812 Other specified joint disorders, left shoulder (principal)
CPT/HCPCS: 99203

== ENCOUNTER → 2025-08-01 09:19 | Outpatient (BNVA) | payer OTHER, SELFPAY | PROVIDERS: Visit Provider Physician Assistant | DX: M25.812 Other specified joint disorders, left shoulder (principal) | CPT/HCPCS: 99202 ==